=== PATIENT | female | born 1970 | race African-American/Black ===

== ENCOUNTER 2016-04-07 21:45 | Observation (INO) | payer BC ==
--- NOTE | ~2016-04-07 | DS ---
Unit #: [id number] #: [id number] Patient: ARLYN LACEY [id number] [address] [place], [place] [address] [id number] I MR#: [id number] NAME: ARLYN LACEY. ROOM: 306 Age: 45 Sex: F Admission Date: 04/08/2016 : 1970 Discharge Date: 04/09/2016 Attending Physician: Josiah Spears M.D. Primary Care Physician: [facility] DISCHARGE SUMMARY ADMITTING DIAGNOSES 1. Near syncopal episode. 2. Chest pain. CONSULTANTS Dr. Karimi. PROCEDURES PERFORMED Cardiolite stress test which was essentially normal. HISTORY OF PRESENT ILLNESS The patient is a 45-year-old lady with a past medical history of cerebellar degeneration. She presented to the hospital with a chief complaint of chest pain and near syncopal episode after prolonged standing in the kitchen. HOSPITAL COURSE The patient was seen by cardiology. She had a Cardiolite stress test done. The stress test was essentially normal. She had a lipid panel done. LDH was 107. She will be started on statin. I did explain the side effects of Lipitor. She also complains of persistent epigastric burning sensation and was started on Protonix. We are requesting that she follow up with her primary care physician after discharge from here. She is doing clinically better. No further episodes of lightheadedness or dizziness. PHYSICAL EXAMINATION VITALS: At discharge, temperature 97.7, pulse rate 61, respiratory rate 18, blood pressure 146/55. GENERAL: The patient is alert and oriented times three, lying in the bed in no acute distress. HEENT: Normocephalic, atraumatic. No icterus. Pupils equally round and reactive to light and accommodation. NECK: Supple. No jugular venous distension. HERAT: S1 and S2. Regular rate and rhythm. CHEST: Bilateral equal entry. Clear to auscultation. ABDOMEN: Soft and nontender. EXTREMITIES: No edema. Normal pulses. DISCHARGE MEDICATIONS 1. Protonix 40 mg p.o. daily. 2. Lipitor 20 mg p.o. daily. FOLLOWUP She is instructed to follow up with her primary care physician in one to Unit #: [id number] #: [id number] Patient: ARLYN LACEY two weeks. All discharge instructions have been explained in detail to the patient. Total time spent in he care 28 minutes. Dictated by... Karo Yu TD: 04/09/2016 14:34 JOB #: [id number] DISCHARGE SUMMARY X X DISCHARGE SUMMARY
--- NOTE | ~2016-04-07 | TH ---
Unit #: [id number] #: [id number] Patient: ARLYN LACEY [id number] [address] [address] [id number] I MR#: [id number] NAME: ARLYN LACEY. : 1970 SEX: F STUDY DATE/TIME: 04/09/2016 UNIT: C3A PCU ROOM: 306 STUDY DESCRIPTION: Lexiscan stress test - Nuclear Attending Physician: Josiah Spears M.D. Primary Care Physician: Libby [facility] CARDIOLOGY REPORT PROCEDURE PERFORMED Lexiscan Cardiolite stress test - Nuclear portion. PROCEDURE Using technetium 99m-labeled Cardiolite, rest and stress SPECT images were obtained. Multiple SPECT images were obtained in various views, including horizontal and vertical long axis and short axis views of the left ventricle. Images were obtained by gated SPECT method. The patient was administered 10.05 mCi of Cardiolite at rest. The patient was administered 33.6 mCi of Cardiolite after Lexiscan infusion was completed. On the stress images, there is normal perfusion noted. The rest images show normal perfusion. Comparing the rest and stress images, there is no stress-induced ischemia noted. The left ventricular ejection fraction is calculated to be 63%. There is no focal wall motion abnormality seen. CONCLUSION 1. No stress-induced ischemia noted. 2. The left ventricular ejection fraction is calculated to be 63%. 3. There is no focal wall motion abnormality seen. 4. Normal Lexiscan Cardiolite stress test. Dictated by... Karo Melchor TD: 04/09/2016 09:54 JOB #: [id number] CARDIOLOGY REPORT X Mag Storm MD <ELECTRONICALLY SIGNED> 09/08/16 1428 CARDIOLOGY REPORT
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
--- NOTE | ~2016-04-07 | CR63 ---
[facility] A Service of [facility] & [facility] RADIOLOGY TEXT RESULTS PATIENT: ARLYN LACEY LOCATION: [facility] 306- : 70 UNIT #: [id number] AGE: [address]: Marzena Akbar MD SEX: F ORDER DR: [id number] [facility] [address] [place], [place] [address] [id number] I MR#: [id number] Acc #: [id number] NAME: ARLYN LACEY. : 1970 SEX: F STUDY DATE/TIME: 04/07/2016 22:26 UNIT: [address] ROOM: [facility] STUDY DESCRIPTION: CR Chest 2 View Attending Physician: Marzena Akbar M.D. Ordering Physician: Franklin Latif D.O. Primary Care Physician: [facility] MEDICAL IMAGING REPORT This report is preliminary unless electronic signature is present EXAM Chest x-ray, 04/07 at 2226. INDICATION Syncopal episode today with dizziness, shortness of air, and weakness. FINDINGS PA and lateral examination of the chest upright shows a good expansion of the parenchyma with a normal distribution of the pulmonary vascularity. There is no indication of congestion, effusion, infiltrate, tumor, or nodular density. The pleural reflections and diaphragmatic contours are normal. The cardiac silhouette and mediastinal anatomy is within normal limits. IMPRESSION Normal chest. Dictated by... Channing Barlow Jr., M.D. THIS IS AN ELECTRONICALLY VERIFIED REPORT Channing Barlow Jr., M.D. at 04/08/2016 8:35 PM COCO/kenneth TD: 04/08/2016 08:30 JOB #: [id number] MEDICAL IMAGING REPORT COPY
--- NOTE | ~2016-04-07 | CT71 ---
[facility] A Service of [facility] RADIOLOGY TEXT RESULTS PATIENT: ARLYN LACEY LOCATION: [facility] 306 : [birth year] UNIT #: [id number] AGE: [address]: Marzena Akbar MD SEX: F ORDER DR: [id number] [facility] [address] [place], [place] [address] [id number] I MR#: [id number] Acc #: [id number] NAME: ARLYN LACEY. : 1970 SEX: F STUDY DATE/TIME: 04/08/2016 0002 UNIT: [address] ROOM: [facility] STUDY DESCRIPTION: CT Head Wo Contrast Attending Physician: Marzena Akbar M.D. Ordering Physician: Franklin Latif D.O. Primary Care Physician: [facility] MEDICAL IMAGING REPORT This report is preliminary unless electronic signature is present EXAM Head CT, 04/08 at 0002 hours. INDICATION Dizziness with syncopal episode this evening at 8 p.m. TECHNIQUE Axial images were obtained from the base to the vertex without contrast. This CT exam was performed with one or more of the following radiation dose reduction techniques: automatic exposure control, adjustment of mA and/or kV according to patient size, and iterative reconstruction. COMPARISON STUDIES Comparison is made with 07/18/2014. FINDINGS Ventricular size and configuration are within normal limits. There is atrophy in the posterior fossa which is unchanged. This could be due to seizure medication. Correlate clinically. There is no acute infarct or hemorrhage. There are no masses. No skull fracture is seen. IMPRESSION No acute intracranial abnormality. No significant change from prior. There is chronic atrophy in the posterior fossa. While this is a nonspecific finding, it could be due to antiseizure medications. Correlate with history. Dictated by... Channing Barlow Jr., M.D. [facility] A Service of [facility] RADIOLOGY TEXT RESULTS PATIENT: ARLYN LACEY LOCATION: [facility] 306- : 70 UNIT #: [id number] AGE: [address]: Marzena Akbar MD SEX: F ORDER DR: THIS IS AN ELECTRONICALLY VERIFIED REPORT Channing Barlow Jr., M.D. at 04/08/2016 8:36 PM COCO/kenneth TD: 04/08/2016 09:09 JOB #: [id number] MEDICAL IMAGING REPORT COPY
--- NOTE | ~2016-04-07 | US37 ---
[facility] A Service of [facility] & [facility] RADIOLOGY TEXT RESULTS PATIENT: ARLYN LACEY LOCATION: [facility] 306-01 : 70 UNIT #: [id number] AGE: [address]: Josiah Spears MD SEX: F ORDER DR: [id number] [facility] [address] [place], [place] [address] [id number] I MR#: [id number] Acc #: [id number] NAME: ARLYN LACEY. : 1970 SEX: F STUDY DATE/TIME: 04/08/2016 12:11 UNIT: [address] ROOM: 306 STUDY DESCRIPTION: US Carotid W/Doppler Bilateral Attending Physician: Josiah Spears M.D. Ordering Physician: Marzena Akbar M.D. MEDICAL IMAGING REPORT This report is preliminary unless electronic signature is present EXAM Carotid duplex scan 04/08/2016 HISTORY Syncope, blurred vision. FINDINGS The right common carotid artery has no plaque. The right internal and external carotid arteries are patent without plaque. The right internal carotid artery is relatively tortuous. Peak systolic velocity in the distal right internal carotid artery is 115 cm/sec with an end-diastolic velocity of 54 cm/sec. The ICA:CCA ratio on the right is 1.28. Peak systolic velocity in the right external carotid artery is 66 cm/sec. The right vertebral artery is patent with antegrade flow. The left common carotid artery has no plaque. The left internal and external carotid arteries are patent without plaque. Evaluation of the left carotid artery is technically difficult because the patient was sleeping and was unable to cooperate fully. Peak systolic velocity in the proximal left internal carotid artery is 100 cm/sec with an end-diastolic velocity of 36 cm/sec. The ICA:CCA ratio on the left is 1.16. Peak systolic velocity in the left external carotid artery is 45 cm/sec. The left vertebral artery is patent with antegrade flow. IMPRESSION Normal examination of the carotid arteries bilaterally. No significant stenosis is demonstrated in the internal or external carotid artery on either side. Patent vertebral arteries bilaterally with antegrade flow. Dictated by... [facility] A Service of [facility] & [facility] RADIOLOGY TEXT RESULTS PATIENT: ARLYN LACEY LOCATION: [facility] 306-01 : 70 UNIT #: [id number] AGE: [address]: Josiah Spears MD SEX: F ORDER DR: Max Bellamy M.D. THIS IS AN ELECTRONICALLY VERIFIED REPORT Max Bellamy M.D. at 04/10/2016 1:26 PM SBS/pcl TD: 04/09/2016 22:45 JOB #: [id number] MEDICAL IMAGING REPORT COPY
--- NOTE | ~2016-04-07 | EKG ---
PATIENT: ARLYN LACEY UNIT #: [id number] Ventricular Rate: 65 BPM Atrial Rate: 65 BPM P-R Interval: 156 ms QRS Duration: 82 ms Q-T Interval: 396 ms QTC Calculation(Bezet): 411 ms P [place]: 43 degrees Calculated R [place]: 19 degrees Calculated T [place]: 15 degrees Diagnosis Line: Normal sinus rhythm Diagnosis Line: Normal ECG Diagnosis Line: No previous ECGs available Diagnosis Line: Confirmed by HUE KYLE MD ([id number]) on Diagnosis Line: 04/08/2016 5:15:23 PM INTERPRETING MD: JANETT
--- NOTE | ~2016-04-07 | ST ---
Unit #: [id number] #: [id number] Patient: ARLYN LACEY [id number] [address] [address] [id number] I MR#: [id number] NAME: ARLYN LACEY : 1970 SEX: F STUDY DATE/TIME: UNIT: C3A PCU ROOM: [facility] STUDY DESCRIPTION: Stress Test Attending Physician: Marzena Akbar M.D. Primary Care Physician: [facility] CARDIOLOGY REPORT EXAM Lexiscan Cardiolite Stress Test DESCRIPTION Baseline EKG - normal sinus rhythm with ventricular rate 66 beats per minute, poor R wave progression. Lexiscan is a four minute test with Lexiscan being injected within the first minute followed by Cardiolite. EKG during the test had some nonspecific ST-T wave abnormalities in inferior leads, otherwise unremarkable. Maximum heart rate response was 121 beats per minute with a maximum blood pressure response of 159/92 mmHg. The patient had no complaints of chest pain, palpitations or dizziness. Had increased shortness of breath and some dizziness that resolved in recovery phase. Cardiolite was injected after Lexiscan within the first minute of the test. Radionuclide test pending. Please correlate with nuclear images. Dictated by... Mauricio Ordoñez/vanessa TD: 04/08/2016 15:07 JOB #: [id number] CARDIOLOGY REPORT X Patricia Rodriguez APRN CARDIOLOGY REPORT
[~2016-04-07 21:45] MED LIST: SALINE NASAL SPRAY
[2016-04-07 21:51] LABS: POC - CKMB 1.2 ng/mL (0.0-7.9); POC - TROPONIN <0.05 ng/mL (<=0.05)
[2016-04-07 22:14] LABS: BASOPHIL% 0.7 % (0-2.5); EOSINOPHIL# 0.1 X10e3 (0-0.7); EOSINOPHIL% 1.4 % (0.0-7.0); HEMATOCRIT 30.9 % (35.0-45.0); HEMOGLOBIN 9.7 gm/dL (12.0-16.0); MEAN CELL VOLUME 72.6 FL (83-96); MEAN CORPUSCULAR HEMOGLOBIN 22.8 PG (28-34); MEAN CORPUSCULAR HGB CONC 31.4 g/dL (30-36); MEAN PLATELET VOLUME 8.4 FL (6.5-11.5); MONOCYTE# 0.5 X10e3 (0-1.0); MONOCYTE% 8.2 % (3.0-12.0); NEUTROPHIL# 4.4 X10e3 (1.5-7.1); NEUTROPHIL% 72.7 % (40-75); PLATELET COUNT 345 X10e3 (140-420); RED BLOOD COUNT 4.26 X10e (3.90-5.30); RED CELL DISTRIBUTION WIDTH 16.7 % (11.0-15.5)
[2016-04-07 22:38] LABS: DIFF IND NO
[2016-04-07 22:40] LABS: ALKALINE PHOSPHATASE 49 U/L (32-92); ALT (SGPT) 14 U/L (10-40); AST (SGOT) 18 U/L (10-42); BILIRUBIN, DIRECT 0.1 mg/dL (0.0-0.2); BILIRUBIN,INDIRECT 0.3 mg/dL (0.0-0.9); BILIRUBIN,TOTAL 0.4 mg/dL (0.2-2.0); BLOOD UREA NITROGEN 14 mg/dL (9-23); BUN/CREATININE RATIO 15.55; CALCIUM SERUM 9.1 mg/dL (8.4-10.2); CARBON DIOXIDE 26 mmol/L (22-31); CHLORIDE 111 mmol/L (100-111); CREATININE SERUM 0.9 mg/dL (0.6-1.4); GLOM FILT RATE Estimated ABOVE60 mL/min (>60); GLUCOSE FASTING 80 mg/dL (70-110); POTASSIUM 3.8 mmol/L (3.5-5.1); SODIUM 138 mmol/L (135-145)
[2016-04-07 23:45] LABS: URINE SOURCE CLEAN CATCH
[2016-04-07 23:50] LABS: URINE APPEARANCE CLEAR; URINE BILIRUBIN NEG (NEG); URINE BLOOD NEG (NEG); URINE COLOR YELLOW; URINE GLUCOSE NEG (NEG); URINE KETONE NEG (NEG); URINE LEUKOCYTE ESTERASE NEG (NEG); URINE NITRATE NEG (NEG); URINE PROTEIN NEG (NEG); URINE SPECIFIC GRAVITY 1.024 (1.003-1.035)
[2016-04-08 00:06] LABS: CULTURE INDICATED? NO
[2016-04-08 02:52] LABS: POC - CKMB <1.0 ng/mL (0.0-7.9); POC - TROPONIN <0.05 ng/mL (<=0.05)
[2016-04-08 08:52] LABS: %MB 1.4 % (0.0-4.0); MB 1.6 ng/ml
[2016-04-08 14:07] LABS: CHOLESTEROL 186 mg/dL (0-200); HDL CHOLESTEROL 64 mg/dL (35-95); LDL CHOLESTEROL 107 mg/dL (-130); LDL/HDL RATIO 2 RATIO (0-4); TRIGLYCERIDES 75 mg/dL (10-160)
[2016-04-08] MEDS ORDERED: NO MEDICATIONS (14:26)
[2016-04-08 15:20] LABS: %MB 1.2 % (0.0-4.0); MB 1.5 ng/ml
[2016-04-09 05:27] LABS: HEMATOCRIT 29.3 % (35.0-45.0); HEMOGLOBIN 9.3 gm/dL (12.0-16.0); MEAN CELL VOLUME 72.4 FL (83-96); MEAN CORPUSCULAR HEMOGLOBIN 22.9 PG (28-34); MEAN CORPUSCULAR HGB CONC 31.7 g/dL (30-36); MEAN PLATELET VOLUME 8.7 FL (6.5-11.5); RED BLOOD COUNT 4.04 X10e (3.90-5.30); RED CELL DISTRIBUTION WIDTH 16.6 % (11.0-15.5); WHITE BLOOD COUNT 5.1 X10e3 (4.0-10.5)
[2016-04-09 06:19] LABS: BLOOD UREA NITROGEN 9 mg/dL (9-23); CALCIUM SERUM 8.8 mg/dL (8.4-10.2); CARBON DIOXIDE 23 mmol/L (22-31); CHLORIDE 108 mmol/L (100-111); CREATININE SERUM 0.6 mg/dL (0.6-1.4); GLOM FILT RATE Estimated ABOVE60 mL/min (>60); GLUCOSE FASTING 83 mg/dL (70-110); SODIUM 139 mmol/L (135-145)
[2016-04-09] MEDS ORDERED: PROTONIX PO (14:27)
[2016-04-09] MEDS ORDERED: LIPITOR20 MG PO (14:27)
== END 2016-04-09 15:41 | disposition home or self-care (01) | DRG 312 ==
LOC: CED 21:45 → CEDOF 04-08 01:23 → C3A PCU 04-08 08:11
PROVIDERS: Emergency Medicine; Internal Medicine; Nurse Practitioner
DX: R55 Syncope and collapse (principal); R07.89 Other chest pain; R00.2 Palpitations; G31.89 Other specified degenerative diseases of nervous system; D64.9 Anemia, unspecified
CPT/HCPCS: 36415; 70450; 71020; 78452; 80048; 80061; 80076; 81003; 82550; 82553; 83735; 84443; 84484; 84703; 85025; 85027; 85379; 93005; 93017; 93306; 93880; 96365; 96366; 97162; 99285; A9500; G0378; J2785

== ENCOUNTER 2016-04-15 12:54 | Observation (INO) | payer BC ==
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
--- NOTE | ~2016-04-15 | BMI ---
[facility] Nutrition Therapy DATE: 04/16/16 Patient: ARLYN Adam LACEY Physician: AMILCAR Address: [address] [place] [address] Room/Bed: [address] [place] [address], Zip: [place] [address] Admit Date: 04/15/16 Date of : 70 Height: 5 5 Weight: 240 109.3 HIGH BMI NOTE: ANTHROPOMETRICS: HT: 65" WT: 109.3 KG BMI: 40.1 INTERVENTION: 1. HEART HEALTHY DIET RECOMMENDATIONS: 1. CONTINUE CURRENT DIET TO PROMOTE GRADUAL WEIGHT LOSS TOWARDS A HEALTHY BMI. Respectfully, RASHEED BIGGS RD, LD Food and Nutritional Services [facility] cc: client file
--- NOTE | ~2016-04-15 | CT71 ---
[facility] A Service of [facility] RADIOLOGY TEXT RESULTS PATIENT: ARLYN LACEY LOCATION: [facility] 320-01 : [birth year] UNIT #: [id number] AGE: [address]: Michelle Foster MD SEX: F ORDER DR: [id number] [address] [address] [id number] E MR#: [id number] Acc #: [id number] NAME: ARLYN LACEY. : 1970 SEX: F STUDY DATE/TIME: 04/15/2016 13:52 UNIT: [facility]EL[facility] ROOM: STUDY DESCRIPTION: CT Head Wo Contrast Attending Physician: Marisol Chris M.D. Ordering Physician: Marisol Chris M.D. MEDICAL IMAGING REPORT This report is preliminary unless electronic signature is present EXAM Noncontrast head CT. HISTORY Confusion and disorientation. History of cerebellar degeneration. COMPARISON 04/08/2016. TECHNIQUE This CT exam was performed with one or more of the following radiation dose reduction techniques: automatic exposure control, adjustment of mA and/or kV according to patient size, and iterative reconstruction. FINDINGS Axial noncontrast imaging brain demonstrates diffuse atrophy of the cerebellum. No involvement of the cerebral hemispheres. Ventricles, sulci, basilar cisterns unremarkable. No mass, mass effect or midline shift. No hemorrhage. Bony calvaria, skull base, mastoids and sinuses unremarkable. IMPRESSION Diffuse symmetric cerebellar atrophy, unchanged from prior studies. No acute findings. Dictated by... Dinaa Olmedo M.D. THIS IS AN ELECTRONICALLY VERIFIED REPORT [facility] A Service of [facility] RADIOLOGY TEXT RESULTS PATIENT: ARLYN LACEY LOCATION: [facility] 320-01 : [birth year] UNIT #: [id number] AGE: [address]: Michelle Foster MD SEX: F ORDER DR: Diana Olmedo M.D. at 04/16/2016 5:02 PM Alberto TD: 04/15/2016 20:48 JOB #: [id number] MEDICAL IMAGING REPORT COPY
--- NOTE | ~2016-04-15 | EE ---
Unit #: [id number] #: [id number] Patient: ARLYN LACEY [id number] [address] [address] [id number] I MR#: [id number] NAME: ARLYN LACEY. : 1970 SEX: F STUDY DATE/TIME: 04/16/2016 UNIT: C3A PCU ROOM: 320 STUDY DESCRIPTION: EEG Attending Physician: Michelle Foster M.D. Referring Physician: Sotero Oliveros M.D. Primary Care Physician: [facility] NEURODIAGNOSTICS REPORT PROCEDURE PERFORMED EEG. REASON FOR STUDY Syncopal episode. EEG DESCRIPTION This is an inpatient, digitally recorded, multi-montage, adult EEG with leads placed according to the International 10-20 system. Hyperventilation and photic stimulation were attempted. PROCEDURE REPORT This EEG shows very low amplitude, subtle slow EEG with no good alpha rhythm, very, very low amplitude with nothing suggesting seizure or status. There was significant beta and muscle artifact throughout the recording. I had to use several filters. Very low gain and some tremors through the recording. I really clearly did not see anything suggesting seizure or interictal discharges or significant asymmetry. No clinical events were seen. Hyperventilation was attempted, and generalized slowing was seen to a mild degree. Nothing major. Photic stimulation was attempted in intermittent stepwise pattern up to flash frequency of 30 Hz, but I did not see any clearcut driving, asymmetry or paroxysmal activity. No clinical events were seen. IMPRESSION This is a mildly slow EEG indicative of encephalopathy. Nothing suggesting seizure or explanation of the patient's mental status changes. Clinical correlation is recommended. Dictated by... Karo Estrada TD: 04/16/2016 16:27 JOB #: [id number] Unit #: [id number] #: [id number] Patient: ARLYN LACEY NEURODIAGNOSTICS REPORT X Radha Del Real MD NEURODIAGNOSTICS REPORT
--- NOTE | ~2016-04-15 | CR20 ---
[facility] A Service of [facility] & [facility] RADIOLOGY TEXT RESULTS PATIENT: ARLYN LACEY LOCATION: [facility] 320- : [birth year] UNIT #: [id number] AGE: [address]: Michelle Foster MD SEX: F ORDER DR: [id number] [facility] [address] [place], [place] [address] [id number] E MR#: [id number] Acc #: [id number] NAME: ARLYN LACEY. : 1970 SEX: F STUDY DATE/TIME: 04/15/2016 12:22 UNIT: [facility] ROOM: STUDY DESCRIPTION: CR Ankle Min 3 Views Lt Attending Physician: Marisol Chris M.D. Ordering Physician: Marisol Chris M.D. MEDICAL IMAGING REPORT This report is preliminary unless electronic signature is present EXAM Left ankle series 04/15/2016. HISTORY 45-year-old female in the ED after syncopal episode. Fell. Left ankle pain. TECHNIQUE Three-view left ankle series. FINDINGS The examination is negative. No fracture, dislocation, arthropathy or other osseous abnormality. IMPRESSION Negative left ankle series. Dictated by... Martinez Hayes M.D. THIS IS AN ELECTRONICALLY VERIFIED REPORT Martinez Hayes M.D. at 04/16/2016 8:40 AM AMENA/sandra TD: 04/15/2016 19:29 JOB #: [id number] MEDICAL IMAGING REPORT COPY
--- NOTE | ~2016-04-15 | EKG ---
PATIENT: ARLYN LACEY UNIT #: [id number] Ventricular Rate: 64 BPM Atrial Rate: 64 BPM P-R Interval: 162 ms QRS Duration: 74 ms Q-T Interval: 380 ms QTC Calculation(Bezet): 392 ms P [place]: 68 degrees Calculated R [place]: 23 degrees Calculated T [place]: 12 degrees Diagnosis Line: Normal sinus rhythm Diagnosis Line: Normal ECG Diagnosis Line: When compared with ECG of 07-APR-2016 20:44, Diagnosis Line: No significant change was found Diagnosis Line: Confirmed by JOHN SWEENEY MD ([id number]) on 04/16/2016 Diagnosis Line: 7:03:25 AM INTERPRETING MD: PATEL BROWN
--- NOTE | ~2016-04-15 | CR72 ---
[facility] A Service of [facility] RADIOLOGY TEXT RESULTS PATIENT: ARLYN LACEY LOCATION: [facility] 320- : 70 UNIT #: [id number] AGE: [address]: Michelle Foster MD SEX: F ORDER DR: [id number] [facility] [address]. [place], [place] [address] [id number] E MR#: [id number] Acc #: [id number] NAME: ARLYN LACEY. : 1970 SEX: F STUDY DATE/TIME: 04/15/2016 12:22 UNIT: [facility] ROOM: STUDY DESCRIPTION: CR Chest Single View Portable Attending Physician: Marisol Chris M.D. Ordering Physician: Marisol Chris M.D. MEDICAL IMAGING REPORT This report is preliminary unless electronic signature is present EXAM AP portable chest 04/15/2016. HISTORY 45-year-old female in the ED after syncopal episodes. 1 of these occurred about 1 week ago, and another today associated with a fall. TECHNIQUE AP portable upright chest x-ray. FINDINGS The examination is negative. Heart size and pulmonary vascularity are within normal limits. The lungs are expanded and clear. No visible pulmonary infiltrate or pleural effusion. No change since 04/07/2016. IMPRESSION Negative chest. No change since 04/07/2016. Dictated by... Martinez Hayes M.D. THIS IS AN ELECTRONICALLY VERIFIED REPORT Martinez Hayes M.D. at 04/16/2016 8:40 AM AMENA/sandra TD: 04/15/2016 19:29 JOB #: [id number] MEDICAL IMAGING REPORT COPY
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
[2016-04-15 12:27] LABS: URINE SOURCE CATH
[2016-04-15 12:29] LABS: POC - CKMB <1.0 ng/mL (0.0-7.9); POC - TROPONIN <0.05 ng/mL (<=0.05)
[2016-04-15 12:32] LABS: BASOPHIL% 0.8 % (0-2.5); EOSINOPHIL# 0.1 X10e3 (0-0.7); EOSINOPHIL% 1.7 % (0.0-7.0); HEMATOCRIT 29.2 % (35.0-45.0); HEMOGLOBIN 9.3 gm/dL (12.0-16.0); LYMPHOCYTE# 2.1 X10e3 (1.0-3.5); LYMPHOCYTE% 41.5 % (17.0-45.0); MEAN CELL VOLUME 71.7 FL (83-96); MEAN CORPUSCULAR HEMOGLOBIN 22.9 PG (28-34); MEAN PLATELET VOLUME 8.6 FL (6.5-11.5); MONOCYTE# 0.6 X10e3 (0-1.0); MONOCYTE% 11.1 % (3.0-12.0); NEUTROPHIL# 2.3 X10e3 (1.5-7.1); NEUTROPHIL% 44.9 % (40-75); PLATELET COUNT 292 X10e3 (140-420); RED BLOOD COUNT 4.07 X10e (3.90-5.30); RED CELL DISTRIBUTION WIDTH 16.7 % (11.0-15.5)
[2016-04-15 12:33] LABS: DIFF IND NO
[2016-04-15 12:33] LABS: URINE APPEARANCE CLEAR; URINE BILIRUBIN NEG (NEG); URINE BLOOD NEG (NEG); URINE COLOR YELLOW; URINE GLUCOSE NEG (NEG); URINE KETONE NEG (NEG); URINE LEUKOCYTE ESTERASE NEG (NEG); URINE NITRATE NEG (NEG); URINE PROTEIN NEG (NEG); URINE SPECIFIC GRAVITY 1.027 (1.003-1.035); URINE UROBILINOGEN 0.2 MG/DL (NEG)
[2016-04-15 12:38] LABS: CULTURE INDICATED? NO
[2016-04-15 12:42] LABS: AMPHETAMINE NEG (NEG); BARBITURATES NEG (NEG); BENZODIAZEPINES NEG (NEG); COCAINE NEG (NEG); MARIJUANA NEG (NEG); OPIATES NEG (NEG); TRICYCLIC ANTIDEPRESSANTS NEG (NEG); U METHADONE NEG (NEG)
[2016-04-15 12:47] LABS: PARTIAL THROMBOPLASTIN TIME 25.9 SECONDS (23.5-31.3); PROTHROMBIN TIME (PATIENT) 10.6 SECONDS (9.6-11.5)
[~2016-04-15 12:54] MED LIST changes: +LIPITOR20 MG PO; +NO MEDICATIONS; +PROTONIX PO
[2016-04-15 13:00] LABS: ALCOHOL BLOOD <5 mg/dL (0); ALKALINE PHOSPHATASE 50 U/L (32-92); ALT (SGPT) 14 U/L (10-40); AST (SGOT) 17 U/L (10-42); BILIRUBIN, DIRECT <0.1 mg/dL (0.0-0.2); BILIRUBIN,INDIRECT 0.1 mg/dL (0.0-0.9); BILIRUBIN,TOTAL 0.2 mg/dL (0.2-2.0); BLOOD UREA NITROGEN 9 mg/dL (9-23); BUN/CREATININE RATIO 12.85; CARBON DIOXIDE 22 mmol/L (22-31); CHLORIDE 106 mmol/L (100-111); CREATININE SERUM 0.7 mg/dL (0.6-1.4); GLOM FILT RATE Estimated ABOVE60 mL/min (>60); GLUCOSE FASTING 93 mg/dL (70-110); POTASSIUM 3.7 mmol/L (3.5-5.1); PROTEIN TOTAL SERUM 7.9 g/dL (6.0-8.3); SODIUM 135 mmol/L (135-145)
[2016-04-15 17:06] LABS: POC - CKMB 1.1 ng/mL (0.0-7.9); POC - TROPONIN <0.05 ng/mL (<=0.05)
[2016-04-16] MEDS ORDERED: VIMPAT100 MG PO (17:44)
[2016-04-16 19:42] LABS: FOLATE (FOLIC ACID) 16.8 ng/mL (>5.8)
== END 2016-04-16 20:00 | disposition home or self-care (01) | DRG 101 ==
LOC: CED 12:54 → CEDOF 17:00 → C3A PCU 21:44
PROVIDERS: Emergency Medicine; Internal Medicine
DX: R56.9 Unspecified convulsions (principal); R55 Syncope and collapse; R53.81 Other malaise; M25.572 Pain in left ankle and joints of left foot; E66.9 Obesity, unspecified; R41.82 Altered mental status, unspecified; G31.89 Other specified degenerative diseases of nervous system; Z90.49 Acquired absence of other specified parts of digestive tract; Z85.3 Personal history of malignant neoplasm of breast
CPT/HCPCS: 36415; 70450; 71010; 73610; 80048; 80076; 80307; 81003; 82553; 82607; 82746; 82947; 84484; 85025; 85610; 85730; 93005; 95816; 99285; G0378; G0480; J1650